=== PATIENT | male | born 2000 | race Hispanic/Latino ===

== ENCOUNTER 2023-01-05 14:58 | Emergency (ER) | payer SELFPAY ==
[~2023-01-05] VITALS: Ht 167.6 cm; Wt 78.0 kg
[2023-01-05] MEDS ORDERED: MEDDOSEPAK PO (20:32)
[2023-01-05 20:36] VITALS: BP 139/89
== END 2023-01-05 20:38 | disposition home or self-care (01) | DRG 607 ==
LOC: ED 14:58
DX: R21 Rash and other nonspecific skin eruption (principal)